=== PATIENT | male | born 1945 | race Caucasian/White ===

== ENCOUNTER 2017-10-24 08:07 | Day surgery (SDC) | payer OTHER, MEDICARE ==
--- NOTE | 2017-10-23 14:54 | HP ---
- Patient Scheduled date of Surgery: 10/24/17 Scheduled Surgical Procedure: Phacoemulsification and cataract extraction with PCIOL Affected Eye: Left Chief Complaint (Indication for surgery): Decreased vision affecting ADLs - Ocular History Other Eye History: Other (RD OS s/p scleral buckle, retinal hole OD laser retinopexy ou, amblyopia od) Eye Medications: vigamox Previous Eye Surgery: s/p slcleral buckle os - Medical History Illnesses: Hypertension Current Medications: lisinopril verapamil Allergies/Adverse Reactions: Allergies Allergy/AdvReac Type Severity Reaction Status Date / Time No Known Allergies Allergy Verified 10/23/17 14:51 Ocular Examination - Best Corrected Visual Acuity Distance: Right eye: 20/25- Distance: Left eye: 20/40- - External/Slit Lamp Examination Abnormalities: pingueuculm - Intraocular Pressure Intraocular Pressure - Right eye: 15 Intraocular Pressure-Left eye: 15 - Lens Lens: 2+ ns vacuoles - Vitreous/Retina Vitreous/Retina: c:d 0.2 ERM, HST inferior with SB , Pvd ou - Special Examination M - Right eye: -0.50-3.75 x 95 M - Left eye: -3.50- 1.75 x 90 K - Right eye: 41.5/44.25 x 006 K - Left eye: 42.75/43.25 x 130 AL - Right eye: 24.97 AL - Left eye: 25.31 IOL bag: +18.0 [id number] IOL sulcus: +17.5 d Mn60ac IOL AC: +15.5 d [id number] - Impression Impression: Cataract Left Eye - Plan Plan: Phacoemulsification and cataract extraction - IOL Left eye Post-hospital care will be provided in office on: 10/25/17
--- NOTE | 2017-10-23 16:01 | HP ---
History & Physical Update - History History: No Change - Physical Physical: No Change - Assessment Assessment: No Change - Plan Plan: No Change
[2017-10-23 16:07] VITALS: BMI 29.3
[~2017-10-24 08:07] MED LIST: ACETAMINOPHEN 325 MG TABLET (FP) PO PRN; TOBRAMYCIN/DEXAMETHASONE OPHTH. OINTMENT 1 TUBE OS ONE
[2017-10-24] MEDS ORDERED: DICLOFENAC SODIUM 0.1% OPHTHALMIC 2.5ML BOTTLE ONE (08:44)
[2017-10-24] MEDS ORDERED: TROPICAMIDE 1% OPHTH SOLN 15 ML BOTTLE ONE (08:44)
[2017-10-24] MEDS ORDERED: PHENYLEPHRINE 2.5% OPHTH SOLN 15 ML BOTTLE ONE (08:44)
[2017-10-24] MEDS ORDERED: CIPROFLOXACIN 0.3% EYE DROPS 5 ML BOTTLE ONE (08:44)
[2017-10-24] MEDS: DICLOFENAC SODIUM 0.1% OPHTHALMIC 2.5ML BOTTLE OP SCH ×3 (08:50→09:00)
[2017-10-24] MEDS: PHENYLEPHRINE 2.5% OPHTH SOLN 15 ML BOTTLE OP SCH ×3 (08:50→09:00)
[2017-10-24] MEDS: TROPICAMIDE 1% OPHTH SOLN 15 ML BOTTLE OP SCH ×3 (08:50→09:00)
[2017-10-24] MEDS: CIPROFLOXACIN HCL 0.3% OPHTH 2.5ML BOTTLE OP SCH ×3 (08:50→09:00)
[2017-10-24] MEDS ORDERED: MIDAZOLAM HCL 2 MG/2 ML SINGLE DOSE VIAL ONE (09:57)
[2017-10-24] MEDS ORDERED: LIDOCAINE HCL 2% JELLY (5 ML/TUBE) TP ONE (10:05)
[2017-10-24] MEDS ORDERED: POVIDONE-IODINE 5% OPHTHALMIC PREP 30 ML SOLUTION OS ONE (10:16)
[2017-10-24] MEDS ORDERED: BSS (NA/CA/MG/K) BALANCED SALT SOLUTION OPHTH SOLN 15 ML BOTTLE OS ONE (10:23)
[2017-10-24] MEDS ORDERED: LIDOCAINE HCL 1% PRESERVATIVE FREE - 30ML VIAL IO ONE (10:23)
[2017-10-24] MEDS ORDERED: CHONDROITIN SU A/HYALUR SOD 1 KIT IO ONE (10:23)
[2017-10-24] MEDS ORDERED: EPINEPHrine/PF 1 MG/1 ML (1:1,000) AMPULE SQ ONE (10:28)
[2017-10-24] MEDS ORDERED: TOBRAMYCIN/DEXAMETHASONE OPHTH. OINTMENT 1 TUBE OS ONE (10:44)
--- NOTE | 2017-10-24 10:48 | OP ---
Ophthalmology Operative Note Pre-Operative Diagnosis: Cataract Affected Eye: Left Operation: Phacoemulsification and cataract extraction with PCIOL Findings: cataract left eye Post-Operative Diagnosis: Same as Pre-op Accounting Teacher: None Anesthesiologist: Kareen George Anesthesia: Topical Specimens Removed: none Estimated blood loss: none Drains & Tubes with Location: none Operative Report Dictated: Yes
--- NOTE | 2017-10-24 11:31 | OP ---
DATE OF OPERATION: PREOPERATIVE DIAGNOSIS: Cataract, left eye. POSTOPERATIVE DIAGNOSIS: Cataract, left eye. PROCEDURE: Phacoemulsification and cataract extraction with insertion of posterior chamber intraocular lens, left eye. SURGEON: Angelina White MD CLINICAL PHYSICIAN ASSISTANT: None. ANESTHESIA: Topical. ANESTHESIOLOGIST: Dr. George OPERATIVE PROCEDURE: The patient received 2% viscous lidocaine gel in the holding area and then was brought to the operating room and gently sedated, prepped and draped in the usual sterile fashion so as to expose only the left eye. Ophthalmic Betadine was instilled into the inferior fornix, and the lashes were taped out of the surgical field. An eyelid speculum was placed into the left eye. A paracentesis was made in inferior clear cornea at the limbus. Then 0.5 mL of nonpreserved lidocaine 1% was injected into the anterior chamber. Viscoelastic material was instilled into the anterior chamber via the paracentesis. A 2.4-mm keratome was then used to create the main incision in temporal clear cornea at the limbus. A continuous curvilinear capsulorrhexis was performed using a cystotome and Utrata forceps. Hyrodissection of the lens cortex was performed using BSS on a cannula until the nucleus was noted to be freely rotating. The phacoemulsification tip was inserted via the main wound and used to sculpt 2 perpendicular grooves into the lens nucleus. The nucleus was cracked into 4 quadrants. Each quadrant was lifted out of the capsule into the iris plane and individually phacoemulsified. The remaining cortical material was then aspirated using the irrigation and aspiration port. The capsular bag was inflated using Provisc, and a preloaded Hoya lens model 251, power +17.5 diopter was injected into the capsular bag and centered using a Sinskey hook. The residual viscoelastic material was removed from the anterior chamber using irrigation and aspiration. The wound edges were hydrated using BSS. The wound was tested for leakage. It was found to be watertight. Therefore, Tobradex ointment was placed in the eye, and the speculum was removed from the eye, and a sterile dressing and shield were placed over the eye, and the patient was transferred to the recovery room in stable condition. ANGELINA WHITE M.D. [id number]
[2017-10-24 13:39] VITALS: BP 117/73; PULSE 67
[2017-10-24 13:46] VITALS: TEMP 98
== END 2017-10-24 12:30 | disposition home or self-care (01) ==
LOC: JASU-SURG 08:07
PROVIDERS: ATTEND Ophthalmology
PROC: 08RK3JZ Replacement of Left Lens with Synthetic Substitute, Percutaneous Approach (ICD-10-PCS; principal; 2017-10-24 09:30)
DX: H26.9 Unspecified cataract (principal)

== ENCOUNTER 2019-01-22 06:51 | Inpatient (IN) | payer OTHER, MEDICARE ==
[2019-01-21 14:49] VITALS: BMI 28.6
[~2019-01-22 06:51] MED LIST changes: -ACETAMINOPHEN 325 MG TABLET (FP) PO PRN; -TOBRAMYCIN/DEXAMETHASONE OPHTH. OINTMENT 1 TUBE OS ONE; +oxyCODONE HCL 10 MG SUSTAINED ACTING TABLET PO ONE
[2019-01-22] MEDS ORDERED: oxyCODONE HCL 10 MG SUSTAINED ACTING TABLET ONE (07:30)
[2019-01-22] MEDS ORDERED: THROMBIN (RECOMBINANT) 5,000 UNIT VIAL TP ONE (11:14)
--- NOTE | 2019-01-22 11:34 | HP ---
History & Physical Update - History History: No Change - Physical Physical: No Change - Assessment Assessment: No Change - Plan Plan: No Change
[2019-01-22] MEDS ORDERED: MIDAZOLAM HCL 2 MG/2 ML SINGLE DOSE VIAL ONE (11:35)
[2019-01-22] MEDS ORDERED: BUPIVACAINE HCL/PF (5 MG/ML) 30 ML VIAL IJ ONE (11:36)
[2019-01-22] MEDS ORDERED: BUPIVACAINE LIPOSOME/PF (EXPAREL) 266 MG/20 ML VIAL ONE (11:45)
[2019-01-22] MEDS ORDERED: GELATIN, ABSORBABLE 100 EACH SPONGE TP ONE ×2 (12:47→13:45)
[2019-01-22] MEDS ORDERED: THROMBIN (BOVINE) 5,000 UNIT VIAL TP ONE ×2 (12:47→13:45)
[2019-01-22] MEDS ORDERED: ceFAZolin SODIUM 1 GM VIAL ONE (12:50)
[2019-01-22] MEDS ORDERED: DEXAMETHASONE SOD PHOSPHATE 4 MG/1 ML VIAL ONE (13:01)
[2019-01-22] MEDS ORDERED: ONDANSETRON 4 MG/2 ML VIAL ONE (13:01)
[2019-01-22] MEDS ORDERED: ACETAMINOPHEN INJECTION 100 ML IVPB ONE (14:58)
[2019-01-22] MEDS ORDERED: ONDANSETRON 4 MG/2 ML VIAL IVPUSH PRN (15:02)
[2019-01-22] MEDS ORDERED: oxyCODONE HCL 5 MG TABLET PO PRN ×2 (15:02)
--- NOTE | 2019-01-22 15:02 | OP ---
Operative Note - Note: Operative Date: 01/22/19 Pre-Operative Diagnosis: lumbar spondylolisthesis Operation: posterior lumbar decompression, instrumentation, fusion. transforaminal interbody lumbar fusion of L5-S1 with allograft and neuromonitoring Surgeon: Bashir Rahman Settlement Technician: Brit Short Anesthesiologist/SITE RELIABILITY ENGINEER: Salvatore Hsu Anesthesia: Spinal Estimated Blood Loss (mls): 30 Fluid Volume Replaced (mls): 1,200 Operative Report Dictated: Yes
[2019-01-22] MEDS ORDERED: ACETAMINOPHEN 1000 MG/100 ML VIAL (NON FORMULARY) IVPB ONE (15:07)
[2019-01-22] MEDS ORDERED: ALBUTEROL SO4 8 GM HFA INHALER IH PRN (15:09)
--- NOTE | 2019-01-22 15:11 | SURG ---
Surgery Accounting/Finance Tutor Note Accounting/Finance Tutor: Brit Short PA-C Date of Service: 01/22/19 Diagnosis: lumbar spondylolisthesis Procedure: posterior lumbar decompression, instrumentation, fusion. transforaminal interbody lumbar fusion of L5-S1 with allograft and neuromonitoring I was present for the entirety of the operative procedure. For further detail, please refer to operative report. Visit type - Case Type Case Type: Scheduled - Emergency Emergency Visit: No - New patient This patient is new to me today: Yes Date on this admission: 01/22/19
[2019-01-22] MEDS ORDERED: LACTATED RINGERS SOLUTION 1,000 ML IV SCH ×3 (15:15→15:45)
[2019-01-22] MEDS: diazePAM 2 MG TABLET PO SCH (17:51)
[2019-01-22] MEDS: ACETAMINOPHEN 325 MG TABLET (FP) PO SCH (21:01)
[2019-01-22] MEDS: CEFAZOLIN 1 GM/D5W 1 GM/50 ML BAG IVPB SCH (21:01)
[2019-01-22] MEDS: DOCUSATE SODIUM 100 MG CAPSULE (FP) PO SCH (21:02)
[2019-01-22] MEDS ORDERED: amLODIPine BESYLATE 10 MG TABLET (FP) PO SCH (22:00)
[2019-01-22] MEDS ORDERED: ATORVASTATIN CA 80 MG TABLET (FP) PO SCH (22:00)
[2019-01-22] MEDS ORDERED: PATIENT'S OWN MEDICATION (NON-FORMULARY) (Lisinopril/Hydrochlorothiazide [Lisinopril-Hctz PO SCH (22:00)
[2019-01-23] MEDS: ACETAMINOPHEN 325 MG TABLET (FP) PO SCH ×2 (02:43→09:26)
[2019-01-23] MEDS: CEFAZOLIN 1 GM/D5W 1 GM/50 ML BAG IVPB SCH (05:50)
[2019-01-23] MEDS: diazePAM 2 MG TABLET PO SCH (05:50)
[2019-01-23 06:24] VITALS: PULSE 74
--- NOTE | 2019-01-23 07:01 | DS ---
Physical Exam: SUBJECTIVE: Patient seen and examined OBJECTIVE: Vital Signs Temperature 98.7 F 01/23/19 06:00 Pulse Rate 74 01/23/19 06:00 Respiratory Rate 18 01/23/19 06:00 Blood Pressure 129/75 01/23/19 06:00 O2 Sat by Pulse Oximetry (%) 94 L 01/23/19 06:00 PHYSICAL EXAM GENERAL: The patient is awake, alert, and fully oriented, in no acute distress. HEAD: Normal with no signs of trauma. EYES: PERRL, extraocular movements intact, sclera anicteric, conjunctiva clear. LUNGS: cta bilat HEART: rrr ABDOMEN: Soft, nontender, nondistended, normoactive bowel sounds, no guarding, no rebound, no hepatosplenomegaly, no masses. EXTREMITIES: 2+ pulses, warm, well-perfused, no edema. NEUROLOGICAL: CN II - XII grossly intact.Ambulating PSYCH: Normal mood, normal affect. SKIN: Lumbar incisions x2 c/d/i. no hematoma, no drainage LABS HOSPITAL COURSE: Date of Admission:01/22/19 Date of Discharge: 01/23/19 The patient was admitted to the Med-Surg Unit after an elective repair of their L5/S1 spondylolithesis. Now, s/p posterior lumbar decompression, instrumentation , fusion. transforaminal interbody lumbar fusion of L5-S1 with allograft and neuromonitoring). The day of surgery, the patient ambulated the hallways with assistance. Narcotic and non-narcotic pain management control was achieved with an oral and IV approach. POD #1 an xray was obtained and confirmed hardware placement at L5/ S1, no fractures or dislocations. Virid[place]-operative IV ABX were administered. DVT prophylaxis was achieved with SCDs and early ambulation. The patient ambulated with Physical Therapy and no services were recommended upon discharge. Narcotic scripts and or muscle relaxants were checked with [facility] prior to escribe. The discharge instructions and an oral pain management plan were reviewed with the patient. All questions answered. Above plan discussed with Dr. Rahman and agreed. Minutes to complete discharge: 35 <Medhat Pitts P - Last Filed: 01/23/19 07:36> Physical Exam: SUBJECTIVE: Patient seen and examined OBJECTIVE: Vital Signs Temperature 98.8 F 01/23/19 09:28 Pulse Rate 74 01/23/19 09:28 Respiratory Rate 18 01/23/19 09:28 Blood Pressure 149/75 01/23/19 09:28 O2 Sat by Pulse Oximetry (%) 98 01/23/19 09:28 PHYSICAL EXAM GENERAL: The patient is awake, alert, and fully oriented, in no acute distress. HEAD: Normal with no signs of trauma. EYES: PERRL, extraocular movements intact, sclera anicteric, conjunctiva clear. ENT: Ears normal, nares patent, oropharynx clear without exudates, moist mucous membranes. NECK: Trachea midline, full range of motion, supple. LUNGS: Breath sounds equal, clear to auscultation bilaterally, no wheezes, no crackles, no accessory muscle use. HEART: Regular rate and rhythm, S1, S2 without murmur, rub or gallop. ABDOMEN: Soft, nontender, nondistended, normoactive bowel sounds, no guarding, no rebound, no hepatosplenomegaly, no masses. EXTREMITIES: 2+ pulses, warm, well-perfused, no edema. NEUROLOGICAL: Cranial nerves II through XII grossly intact. Normal speech, gait not observed. PSYCH: Normal mood, normal affect. SKIN: Warm, dry, normal turgor, no rashes or lesions noted. LABS CBC,CMP WBC 10.7 K/mm3 (4.0-10.8) 01/23/19 07:10 RBC 3.91 M/mm3 (4.00-5.60) L 01/23/19 07:10 Hgb 12.1 GM/dl (11.7-16.9) 01/23/19 07:10 Hct 34.7 % (35.4-49) L 01/23/19 07:10 MCV 88.7 fl (80-96) 01/23/19 07:10 MCH 30.9 pg (25.7-33.7) 01/23/19 07:10 MCHC 34.8 g/dl (32.0-35.9) 01/23/19 07:10 RDW 13.2 % (11.9-15.9) 01/23/19 07:10 Plt Count 221 K/MM3 (134-434) 01/23/19 07:10 MPV 9.4 fl (7.5-11.1) 01/23/19 07:10 Sodium 134 mmol/L (136-145) L 01/23/19 07:10 Potassium 4.5 mmol/L (3.5-5.1) 01/23/19 07:10 Chloride 98 mmol/L (98-107) 01/23/19 07:10 Carbon Dioxide 26 mmol/L (21-32) 01/23/19 07:10 Anion Gap 10 MMOL/L (8-16) 01/23/19 07:10 BUN 30 mg/dl (7-18) H 01/23/19 07:10 Creatinine 1.4 mg/dl (0.55-1.3) H 01/23/19 07:10 Creat Clearance w eGFR 49.82 (>60) 01/23/19 07:10 Random Glucose 121 mg/dl (74-106) H 01/23/19 07:10 Calcium 9.2 mg/dl (8.5-10) 01/23/19 07:10 HOSPITAL COURSE: Date of Admission:01/22/19 Date of Discharge: 01/26/19 Patient seen and examined Agree with above D/C Planning <Bashir Rahman - Last Filed: 01/26/19 11:34> Visit type - Case Type Case Type: Scheduled - New patient This patient is new to me today: Yes Date on this admission: 01/23/19 <Medhat Pitts - Last Filed: 01/23/19 07:36>
[2019-01-23 07:34] LABS: HEMATOCRIT 34.7 % (35.4-49); HEMOGLOBIN 12.1 GM/dl (11.7-16.9); MCH 30.9 pg (25.7-33.7); MCHC 34.8 g/dl (32.0-35.9); MEAN CELL VOLUME 88.7 fl (80-96); MEAN PLT VOLUME 9.4 fl (7.5-11.1); PLATELET COUNT 221 K/MM3 (134-434); RBC 3.91 M/mm3 (4.00-5.60); RDW 13.2 % (11.9-15.9); WHITE BLOOD COUNT 10.7 K/mm3 (4.0-10.8)
[2019-01-23 07:35] LABS: ANION GAP 10 MMOL/L (8-16); BLOOD UREA NITROGEN 30 mg/dl (7-18); CALCIUM 9.2 mg/dl (8.5-10); CHLORIDE 98 mmol/L (98-107); CO2 26 mmol/L (21-32); CREATININE 1.4 mg/dl (0.55-1.3); GLUCOSE,RANDOM 121 mg/dl (74-106); POTASSIUM 4.5 mmol/L (3.5-5.1); SODIUM 134 mmol/L (136-145)
[2019-01-23] MEDS: DOCUSATE SODIUM 100 MG CAPSULE (FP) PO SCH (09:26)
[2019-01-23 09:28] VITALS: BP 149/75; TEMP 98.8
[2019-01-23] MEDS ORDERED: HYDROCHLOROTHIAZIDE 25 MG TABLET (FP) PO SCH (10:00)
[2019-01-23] MEDS ORDERED: LISINOPRIL 20 MG TABLET (FP) PO SCH (10:00)
--- NOTE | 2019-01-27 10:30 | OP ---
DATE OF OPERATION: 01/22/2019 PREOPERATIVE DIAGNOSES: 1. Spinal stenosis, L5-S1. 2. Spondylolisthesis, L5-S1. POSTOPERATIVE DIAGNOSES: 1. Spinal stenosis, L5-S1. 2. Spondylolisthesis, L5-S1. PROCEDURE PERFORMED: 1. Transforaminal lumbar interbody fusion, L5-S1. 2. Placement of instrumentation at L5-S1. 3. Placement of interbody cage. SURGEON: Bashir Rahman MD FIELD IRRIGATION WORKER: JA Bills ESTIMATED BLOOD LOSS: 50 mL. INTRAVENOUS FLUIDS: Per Anesthesia. ANESTHESIA: Spinal/TLIP. COMPLICATIONS: None. DISPOSITION: Patient brought to the PACU in stable condition. INDICATIONS FOR SURGERY: The patient is a 73-year-old gentleman who has been suffering from pain from his back down his legs. X-rays and MRI were completed which noted that he had spinal stenosis at L5-S1 secondary to a spondylolisthesis. He had gone through an exhaustive course of treatment for this which included medications, physical therapy, as well as injections. Unfortunately, his pain continued to persist despite all this. At this point, risks, benefits, and alternatives were discussed, and the patient consented to surgery. DESCRIPTION OF PROCEDURE: Patient was brought to the operating room by the anesthesia staff. After appropriate patient identification was performed, spinal anesthesia was given. A TLIP block was also given. The patient was able to position himself prone onto to OR table with all areas of bony prominences well padded at this time. The C-arm was brought in. The L5-S1 pedicle was marked off. His back was prepped and draped in a sterile manner. At this point, timeout was completed. Incisions were made bilaterally over the L5 and S1 pedicles. Dissection was carried down to the fascia. Fascia was then split open at this time. Under C-arm guidance, trocars were advanced into both the L5 and S1 pedicles. Through the trocars, wire was inserted. Over the wire, a tap was performed, and screws were inserted. On the right-hand side, retractor blades were set up to expose the L5-S1 facet joint. This was confirmed with x-ray. The facet joint was removed. The disk was entered. Using a series of pituitaries, Kerrisons, and curettes, diskectomy was completed. The endplates were decorticated at this time. Bone graft was laid down, and cage filled with bone graft was placed in. Tulip pads were placed over the screws. A miguel was measured and placed in. Caps and compression were applied. On the left-hand side, a miguel was measured and placed in. Caps and compression were applied. AP and lateral x-rays confirmed the instrumentation to be in good position. The fascia was closed with a No. 1 Vicryl suture. Subcutaneous tissue was closed with 2-0 Vicryl suture. Skin was closed with 3-0 Monocryl suture. Dermabond was applied. Steri-Strips were applied. A sterile dressing was applied. Patient was placed supine on the OR bed and brought to the PACU in stable condition. Robert ALLAN/[id number]
== END 2019-01-23 12:25 | disposition home or self-care (01) | DRG 460 ==
LOC: FM/S 06:51
PROVIDERS: ADMIT Orthopaedic Surgery Orthopaedic Surgery of the Spine; ATTEND Orthopaedic Surgery Orthopaedic Surgery of the Spine
PROC: 0SG30KJ Fusion of Lumbosacral Joint with Nonautologous Tissue Substitute, Posterior Approach, Anterior Column, Open Approach (ICD-10-PCS; 2019-01-22)
PROC: 0SB40ZZ Excision of Lumbosacral Disc, Open Approach (ICD-10-PCS; 2019-01-22)
PROC: 4A11X4G Monitoring of Peripheral Nervous Electrical Activity, Intraoperative, External Approach (ICD-10-PCS; 2019-01-22)
PROC: 0SG30AJ Fusion of Lumbosacral Joint with Interbody Fusion Device, Posterior Approach, Anterior Column, Open Approach (ICD-10-PCS; principal; 2019-01-22 13:06)
DX: M43.16 Spondylolisthesis, lumbar region (principal); M48.07 Spinal stenosis, lumbosacral region
CPT/HCPCS: 36415; 72100-TC-FY; 80048; 85027; 94760; 97116-GP; 97161-GP; J0131